=== PATIENT | female | born 1990 | race Caucasian/White ===

== ENCOUNTER 2020-09-02 20:55 | Inpatient (IN) | payer OTHER, SELFPAY ==
[2020-09-02] VITALS (11 sets, daily range): BP systolic 0–119; BP diastolic 0–79; PULSE 76–109; RESP 16; O2SAT 95–98; BMI 34.2
--- NOTE | 2020-09-02 21:05 | ANES.PREANE2 ---
Pre-Anesthetic Assessment Pre-Anesthetic Assessment: Preop Diagnosis: IUP Proposed Procedure: Labor epidural Was Beta Kaylee taken within 24 hours: N/A Last Intake: 09:30 Social: Social History: Tobacco (2-3 cigs per day) Exam: Pre-Anes Outpt Exam: alert, oriented x 3 and clear to auscultation bilaterally Airway: Submandibular: WNL Cervical ROM: WNL MP: 2 Pulmonary: Pulmonary: Asthma (acute denies recent problems) CV/HEM: CV/HEM: None reported : : None reported Hepatic: Hepatic: None reported GI: GI: GERD Metabolic: Metabolic: None reported Musc/skel: Musc/skel: None reported Neuropsych: Neuropsych: None reported Anesthetic Plan: ASA status: 2 Anesthesia: Anesthesia Evaluation and Eval. for regional block Data Anesthesia Cardiac Studies: No Data to Display
[2020-09-02] MEDS: lactated ringers 1,000 ML 999 ML IV (22:09)
[2020-09-02 22:27] LABS: Basophils % 0.2 %; Eosinophils # 0.1 10^3/uL (0.0-0.8); Eosinophils % 0.8 %; Hematocrit 39.9 % (37.0-47.0); Hemoglobin 13.3 g/dL (11.5-15.3); Lymphocytes % 12.1 %; Mean Corpuscular HGB Conc 33.3 g/dL (30.0-36.0); Mean Corpuscular Hemoglobin 29.6 pg (28.0-34.0); Mean Corpuscular Volume 88.9 fL (81-99); Monocytes # 1.2 10^3/uL (0.2-0.9); Neutrophils # 13.17 10^3/uL (1.8-7.7); Neutrophils % 79.6 %; Nucleated Red Blood Cells % 0 %; Platelet Count 301 10^3/cmm (130-400); Red Blood Count 4.49 10^6/uL (4.1-5.3); Red Cell Distribution Width 13.3 % (12.1-15.1); White Blood Count 16.6 10^3/uL (4.0-10.0)
[2020-09-02] MEDS: fentaNYL 50 mcg/mL INJ 2mL IV (23:05)
[2020-09-02] MEDS: dextrose 5%-lactated ringers 1,000 ML 125 ML IV (23:43)
[2020-09-03] VITALS (128 sets, daily range): BP systolic 0–143; BP diastolic 0–108; PULSE 58–130; RESP 16–18; TEMP 36.6–36.7; O2SAT 83–100
--- NOTE | 2020-09-03 00:23 | ANES.PROC ---
Anesthesia Procedures Procedure/Date: 09/03/20 Epidural: Time Out Performed: Yes Consents Signed: Procedure Consent Consent: requested by attending/covering physician, risks and benefits reviewed and patient agrees to proceed Lumbar Level: L3-L4 Epidural position: sitting Epidural procedure: sterile prep of area, 1% lidocaine to numb the area (3 cc ), 18 g needle (L3-L4 interspace), neg for paresthesia, test dose given (3 cc), 0.2% Ropivacaine bolus ml (8 cc), placed PCEA (13 mls/hr ), no systemic response, sterile dressing applied, L.U.D. no apparent complications and 0.2% Ropiavacaine @ mls/hr (13 mls/hr) Additional Comments: MARGARET at 8 cm, catheter threaded to to 13 cm at skin. Patients BP decreased significantly, 100 mcg phenelephrine x 2 doses. PACKER INSPECTOR pump turned off for 30 min and 300 cc bolus given. VSS see OBYX
--- NOTE | 2020-09-03 01:19 | PM.MISC ---
Miscellaneous Note Purpose of Documentation: anesthesia intervention Note: 0100: Attempted to restart patients epidural pump at 11 mls/hr, blood pressure decreased significantly again. epidural pump turned off, 50 mg IM ephedrine given and 100 mcg of phenelephrine x 3 doses. 0120: BP 107/54 epidural pump remains off, 500 ml bolus infusing.
--- NOTE | 2020-09-03 01:55 | PC.NURSE ---
Dr. Harley at nurses station, [facility] reviewed with MD and nursing interventions performed discussed.
--- NOTE | 2020-09-03 02:00 | PC.NURSE ---
Dr. Harley at bedside
[2020-09-03] MEDS: fentaNYL 50 mcg/mL INJ 2mL IV ×2 (04:12→10:58)
[2020-09-03] MEDS: oxytocin 30 UNIT/500 ML BAG IV (06:03)
--- NOTE | 2020-09-03 07:45 | PC.NURSE ---
PT DOES NOT HAE EPIDURAL AND REQUESTED THAT IT BE TAKEN OUT.
[2020-09-03] MEDS: dextrose 5%-lactated ringers 1,000 ML 125 ML IV (07:52)
--- NOTE | 2020-09-03 11:43 | PM.DELIVERY ---
Delivery Note: Date of delivery: September 03, 2020 Pre-Delivery Course: The patient is a 29-year-old 5 para 4 at 37 week who presented to the OB department last night complaining of contractions. She was making cervical change, so an amniotomy was performed. An epidural was attempted, but she had hypotension, as well as decelerations. As result the epidural was stopped. She was then having spaced out contractions, so Pitocin was used to augment her labor. Or last half hour the patient was having more frequent decelerations. As result I came to consider doing a . I checked her one more time and found that she was an anterior lip. So we pushed through several contractions and she delivered a baby without difficulty. Delivery: DELIVERY: The patient progressed to complete without difficulty. She delivered a male with a weight of 6 pounds 14 ounces with Apgars of 7, 9. The baby was delivered from the GHADA position. The baby's mouth and nose were suctioned at the site of the perineum. The baby was then completely delivered and placed on the mother's abdomen. The cord was then clamped and cut. There was a body cord x1. There was no meconium. The placenta and 3 vessel cord were delivered intact shortly thereafter. The perineum and vaginal vault were carefully examined. No lacerations were noted. Both the mother and the baby were in stable condition. Estimated blood loss was 150 mL A&P Assessment and plan (1) Spontaneous vaginal delivery: I anticipate routine care. Status: Acute (2) 37 weeks gestation of : Status: Acute Coding Level of Care Code Acute Equipment Maintenance Superintendent for [place] Diagnoses Spontaneous vaginal delivery O80 37 weeks gestation of Z3A.37
[2020-09-03] MEDS: benzocaine-menthol 78 gm Canister 1 SPRAY TOPICAL (13:12)
[2020-09-03] MEDS: HYDROcodone-acetaminophen 5-325 mg Tablet PO (13:13)
[2020-09-03] MEDS: lanolin oint 7 gm 1 APPLIC TOPICAL (13:13)
[2020-09-03] MEDS: ibuprofen 800 mg tablet PO ×2 (15:34→21:27)
[2020-09-03 17:16] LABS: Coronavirus Lab Test PTC Negative
[2020-09-03] MEDS: docusate sodium 100 mg Capsule PO (18:09)
[2020-09-04 00:25] LABS: Hematocrit 31.3 % (37.0-47.0); Hemoglobin 10.2 g/dL (11.5-15.3); Mean Corpuscular HGB Conc 32.6 g/dL (30.0-36.0); Mean Corpuscular Hemoglobin 29.7 pg (28.0-34.0); Mean Platelet Volume 11.8 fL (7.4-10.4); Platelet Count 239 10^3/cmm (130-400); Red Blood Count 3.44 10^6/uL (4.1-5.3); Red Cell Distribution Width 13.5 % (12.1-15.1); White Blood Count 11.5 10^3/uL (4.0-10.0)
[2020-09-04 01:40] VITALS: BP 108/62; PULSE 64; RESP 16
[2020-09-04 06:04] VITALS: BP 114/74; PULSE 74; RESP 17
[2020-09-04] MEDS: HYDROcodone-acetaminophen 5-325 mg Tablet PO (07:21)
--- NOTE | 2020-09-04 07:52 | PM.OBGYDC ---
Discharge Providers EMERGENCY MEDICINE SPECIALIST Date of Admission: 09/02/20 20:55 Date of Discharge: 09/04/20 Attending Provider at Admission: Vu Harley MD Attending Provider at Discharge: Vu Harley MD Primary Care Provider: Shobha Gomez MD Diagnoses at Discharge Discharge Diagnosis (1) Spontaneous vaginal delivery: Status: Acute (2) 37 weeks gestation of : Status: Acute Reason for Visit Reason for Visit: contractions Hospital Course Hospital Course The patient presented to the hospital in active labor. She had an epidural placed which was ineffective and also caused heart tone decelerations. As result the epidural was discontinued. An amniotomy was performed. Pitocin augmentation was included. She progressed to complete and had an unremarkable delivery of a healthy appearing 37-week male . Her course was also unremarkable. Her bleeding was within normal limits. Her pain was well controlled. She breast-fed well. Information Peripartum Data: Infant Delivery Method: Vaginal Physical Exam Narrative: EXAM NARRATIVE: The patient is alert. She appears comfortable. Her heart has a regular rate and rhythm with no murmurs appreciated. Lungs are clear to auscultation bilaterally. Her fundus is firm and below the umbilicus. Urinary Catheter Management^: Smith Latex: Cath Placed During This Visit: yes, but has since been removed by the nurse Reason for Continuing Indwelling Catheter: Other Urinary Catheter Date of Insertion: 09/03/20 Urinary Catheter Time of Insertion: 00:52 Date Urinary Catheter Removed: 09/03/20 Time Urinary Catheter Discontinued: 07:40 Discharge Data Data Completed and Pending: Labs from last 24 hours 09/04/20 09/03/20 00:15 00:35 WBC 11.5 H RBC 3.44 L Hgb 10.2 L Hct 31.3 L MCV 91.0 MCH 29.7 MCHC 32.6 RDW 13.5 Plt Count 239 MPV 11.8 H Nasal/Oral COVID-1 9 PCR Negative Vitals: Last Vital Signs Temp 97.9 F 09/03/20 21:35 Pulse 74 09/04/20 06:04 Resp 17 09/04/20 06:04 BP 114/74 09/04/20 06:04 Pulse Ox 98 09/03/20 21:35 Discharge Plan Discharge Patient Disposition: Home Condition: Stable Prescriptions: New ibuprofen 800 mg Tablet 800 mg PO TID Qty: 30 RF: 0 Continued 400 mcg Tablet,Chewable 1 tab PO DAILY RF: 0 Discharge Orders: Discharge Order (Routine); Ordered 09/04/20 Ordered By: Vu Harley Referrals: Jeffrey Taylor MD [Physician] - (For 6 week tubal ligation) Vu Harley MD [Physician] - 6 Weeks Discharge Diet: Regular Discharge Activity: Limit activity as instructed Discharge Attestations EMERGENCY MEDICINE SPECIALIST Time Spent in Discharge Care*: less than 30 min Coding Level of Care Code Acute Bullet Slug Casting Machine Operator for Chg Fwd Diagnoses Spontaneous vaginal delivery O80 37 weeks gestation of Z3A.37
[2020-09-04] MEDS: ibuprofen 800 mg tablet PO (08:59)
[2020-09-04] MEDS: prenatal vitamin Capsule 1 CAP PO (08:59)
[2020-09-04] MEDS: docusate sodium 100 mg Capsule PO (08:59)
[2020-09-04 10:25] VITALS: BP 107/70; PULSE 91; RESP 18; TEMP 36.6; O2SAT 99
--- NOTE | 2020-09-04 12:59 | ANE.PACU2 ---
Inpatient post-anesthesia follow up: Airway intact: Yes Vital signs: Temperature 97.9 F Pulse Rate 91 Respiratory Rate 18 Blood Pressure 107/70 Pulse Oximetry 99 Oxygen Delivery Me thod Room Air Oxygen Flow Rate Fraction of Inspir ed Oxygen Hydration adequate: Yes Nausea and vomiting: No Pain level: 1 Mental status: Baseline Additional Comments: No signs of infection at neuraxial site, no residual numbness/weakness in legs, no headaches, urinating without tinoco
[2020-09-04 14:13] VITALS: BP 106/69; PULSE 69; RESP 18; TEMP 37.1; O2SAT 99
--- NOTE | 2020-09-04 14:58 | PC.NURSE ---
Women's Health Appointment Patient has an appt scheduled 09/27/20 @ 1:15 for a tubal consult with Dr Taylor, patient aware of this appointment
--- NOTE | 2020-09-04 14:59 | PC.NURSE ---
Patient did not get MMR while a patient here in the hospital. Catrachito Anderson called and was aware of her not getting the shot, they said they would give it at 6 week appt. Patient was called and made aware
== END 2020-09-04 14:25 | disposition home or self-care (01) | DRG 807 ==
LOC: OPOB 21:01 → OBGYN 21:01 → OPOB 09-03 00:45 → OBGYN 09-03 00:45
PROVIDERS: Admitting Provider Family Medicine; PCP Family Medicine; Visit Provider Family Medicine
DX: O69.81X0 Labor and delivery complicated by cord around neck, without compression, not applicable or unspecified (principal); Z37.0 Single live birth; O76 Abnormality in fetal heart rate and rhythm complicating labor and delivery; Z3A.37 37 weeks gestation of pregnancy
CPT/HCPCS: 12345; 36415; 51702; 59025; 59409; 85025; 85027; 87635; 96374; 96375; 99211; J2795; J3010

== ENCOUNTER → 2020-10-28 09:10 | Outpatient (BNVA) | payer OTHER, MEDICAID, SELFPAY | PROVIDERS: PCP Family Medicine; Visit Provider Obstetrics & Gynecology | DX: Z11.59 Encounter for screening for other viral diseases (principal); Z30.2 Encounter for sterilization | CPT/HCPCS: 87635 ==

== ENCOUNTER 2020-10-30 09:54 | Day surgery (SDC) | payer OTHER, MEDICAID, SELFPAY ==
[2020-10-28 12:25] VITALS: BMI 33.0
[2020-10-28 12:41] LABS: OR HCG Qualitative Urine Negative (Negative)
[2020-10-28 12:53] LABS: Add Urine Microscopic? NO
[2020-10-28 13:01] LABS: Basophils # 0.1 10^3/uL (0.0-0.1); Basophils % 0.6 %; Eosinophils # 0.2 10^3/uL (0.0-0.8); Eosinophils % 2.2 %; Hematocrit 44.7 % (37.0-47.0); Hemoglobin 14.2 g/dL (11.5-15.3); Lymphocytes # 2.4 10^3/uL (0.8-4.8); Lymphocytes % 30.5 %; Mean Corpuscular HGB Conc 31.8 g/dL (30.0-36.0); Mean Corpuscular Hemoglobin 29.1 pg (28.0-34.0); Mean Corpuscular Volume 91.6 fL (81-99); Mean Platelet Volume 10.6 fL (7.4-10.4); Monocytes # 0.6 10^3/uL (0.2-0.9); Monocytes % 7.4 %; Neutrophils # 4.66 10^3/uL (1.8-7.7); Nucleated Red Blood Cells % 0 %; Platelet Count 430 10^3/cmm (130-400); Red Blood Count 4.88 10^6/uL (4.1-5.3); Red Cell Distribution Width 12.8 % (12.1-15.1); White Blood Count 7.9 10^3/uL (4.0-10.0)
[2020-10-28 13:08] LABS: Bilirubin Urine Neg (Negative); Blood Urine Neg (Negative); Glucose Urine UA Norm (Normal); Ketones Urine Negative (Negative); Leukocyte Esterase Urine Negative (Negative); Nitrate Urine Negative (Negative); Protein Urine Neg (Negative); Specific Gravity, Urine 1.025 (1.005-1.030); Urine Appearance Clear (CLEAR); Urine Color Yellow (Yellow); Urobilinogen Urine Norm (Negative); pH Urine 5 (5-7)
[2020-10-28 13:26] LABS: Alanine Aminotransferase 23 U/L (0-33); Alkaline Phosphatase 117 IU/L (35-105); Anion Gap 11.6 (5-19); Aspartate Amino Transferase 19 U/L (0-32); Blood Urea Nitrogen 8 mg/dL (6-20); Calcium 8.7 mg/dL (8.5-10.5); Carbon Dioxide 29 mmol/L (22-29); Chloride 101 mmol/L (98-107); Globulin 2.8 g/dL (1.3-4.6); Glomerular Filtration Rate 118.2 mL/min (90-130); Glucose 97 mg/dL (65-115); Osmolality Calculated 284 mOsm/kg (285-295); Potassium 3.6 mmol/L (3.5-5.1); Sodium 138 mmol/L (136-145); Total Bilirubin 0.5 mg/dL (0.15-1.2); Total Protein 6.8 g/dL (6.6-8.7)
--- NOTE | 2020-10-28 14:15 | ANES.PREANE2 ---
Pre-Anesthetic Assessment Pre-Anesthetic Assessment: Height/Weight: Height 1.68 m Weight 92.986 kg Preop Diagnosis: Desire permanent sterilization Proposed Procedure: Operation Date: 10/30/20 11:35 Proposed Procedures p bilateral Lap Fulg,Removal of Tubes Sterilization 43275 z30.2(Bilateral) - Jeffrey Taylor MD Was Beta Kaylee taken within 24 hours: N/A Social: Social History: Tobacco and No alcohol Exam: Pre-Anes Outpt Exam: alert, oriented x 3, clear to auscultation bilaterally and regular rate & rhythm Airway: Submandibular: WNL Cervical ROM: WNL MP: 2 Dentition: Full Pulmonary: Pulmonary: COPD Metabolic: Metabolic: Morbid obesity Anesthetic Plan: ASA status: 2 Anesthesia: General Risk of > 500 ml blood loss (7ml/kg in children): No PFSH Anesthesia PFSH: Family History Denies family history of Colon cancer Ovarian cancer Diabetes Clotting disorder Heart disease Hypercholesteremia Breast cancer Anesthesia complication Bleeding disorder Hypertension Uterine cancer Thyroid disease Stroke Social History (Updated 10/28/20 @ 08:21 by Ileana Etienne RN) Smoking and tobacco status: current every day smoker cigarettes [ Other cigarette details: 5-6 cigarettes per day ] Alcohol intake: never Data Anesthesia CBC & Chem 7: 10/28/20 12:40 10/28/20 12:40 Other Labs: Laboratory Results - last 48 hr 10/28/20 10/28/20 10/28/20 12:23 12:40 12:40 WBC 7.9 RBC 4.88 Hgb 14.2 Hct 44.7 MCV 91.6 MCH 29.1 MCHC 31.8 RDW 12.8 Plt Count 430 H MPV 10.6 H Neut % (Auto) 59.0 Lymph % (Auto) 30.5 [place] % (Auto) 7.4 Eos % (Auto) 2.2 Baso % (Auto) 0.6 Neut # (Auto) 4.66 Lymph # (Auto) 2.4 [place] # (Auto) 0.6 Eos # (Auto) 0.2 Baso # (Auto) 0.1 Nucleated RBC % (auto) 0 Nucleated RBCs # 0.0 Sodium Potassium Chloride Carbon Dioxide Anion Gap BUN Creatinine GFR Calculation Glucose Calculated Osmolality Calcium Total Bilirubin AST ALT Alkaline Phosphatase Total Protein Albumin Globulin Urine Color Yellow Urine Appearance Clear Urine pH 5 Ur Specific [place] 1.025 Urine Protein Neg Urine Glucose (UA) Norm Urine Ketones Negative Urine Blood Neg Urine Nitrate Negative Urine Bilirubin Neg Urine Urobilinogen Norm Ur Leukocyte Esterase Negative Urine HCG, Qual Negative Blood Type Rho(D) Type Antibody Screen 10/28/20 10/28/20 12:40 12:40 WBC RBC Hgb Hct MCV MCH MCHC RDW Plt Count MPV Neut % (Auto) Lymph % (Auto) [place] % (Auto) Eos % (Auto) Baso % (Auto) Neut # (Auto) Lymph # (Auto) [place] # (Auto) Eos # (Auto) Baso # (Auto) Nucleated RBC % (auto) Nucleated RBCs # Sodium 138 Potassium 3.6 Chloride 101 Carbon Dioxide 29 Anion Gap 11.6 BUN 8 Creatinine 0.6 GFR Calculation 118.2 Glucose 97 Calculated Osmolality 284 L Calcium 8.7 Total Bilirubin 0.5 AST 19 ALT 23 Alkaline Phosphatase 117 H Total Protein 6.8 Albumin 4.0 Globulin 2.8 Urine Color Urine Appearance Urine pH Ur Specific [place] Urine Protein Urine Glucose (UA) Urine Ketones Urine Blood Urine Nitrate Urine Bilirubin Urine Urobilinogen Ur Leukocyte Esterase Urine HCG, Qual Blood Type O Positive Rho(D) Type Positive Antibody Screen Negative Cardiac Studies: No Data to Display
[2020-10-30] VITALS (8 sets, daily range): BP systolic 109–128; BP diastolic 58–80; PULSE 48–77; RESP 16–20; TEMP 36.4–36.9; O2SAT 95–97
[2020-10-30] MEDS: sodium chloride 0.9% 1,000 ML 30 ML IV (10:43)
--- NOTE | 2020-10-30 10:56 | P.ANESUD_ITS ---
Pre-Anesthetic Update Pre-Anesthetic Assessment: Date of Surgery/Procedure: 10/30/20 Preop Stephani gnosis: IUP Proposed Procedure: Operation Date: 10/30/20 11:35 Proposed Procedures p bilateral Lap Fulg,Removal of Tubes Sterilization 83391 z30.2(Bilateral) - Jeffrey Taylor MD Any changes to Pre-Anesthetic Assessment?: No Changes from Pre-Anesthetic Assessment: NPO at MN Last Intake: Intake Last Liquid Date 10/29/20 Last Liquid Time 18:30 Last Solid Date 10/29/20 Last Solid Time 18:30 Labs Last 48hrs: Laboratory Results - last 48 hr 10/28/20 10/28/20 10/28/20 12:23 12:40 12:40 WBC 7.9 RBC 4.88 Hgb 14.2 Hct 44.7 MCV 91.6 MCH 29.1 MCHC 31.8 RDW 12.8 Plt Count 430 H MPV 10.6 H Neut % (Auto) 59.0 Lymph % (Auto) 30.5 [place] % (Auto) 7.4 Eos % (Auto) 2.2 Baso % (Auto) 0.6 Neut # (Auto) 4.66 Lymph # (Auto) 2.4 [place] # (Auto) 0.6 Eos # (Auto) 0.2 Baso # (Auto) 0.1 Nucleated RBC % (a uto) 0 Nucleated RBCs # 0.0 Sodium Potassium Chloride Carbon Dioxide Anion Gap BUN Creatinine GFR Calculation Glucose Calculated Osmolal ity Calcium Total Bilirubin AST ALT Alkaline Phosphata se Total Protein Albumin Globulin Urine Color Yellow Urine Appearance Clear Urine pH 5 Ur Specific Gravit y 1.025 Urine Protein Neg Urine Glucose (UA) Norm Urine Ketones Negative Urine Blood Neg Urine Nitrate Negative Urine Bilirubin Neg Urine Urobilinogen Norm Ur Leukocyte [place] ase Negative Urine HCG, Qual Negative Blood Type Rho(D) Type Antibody Screen 10/28/20 10/28/20 12:40 12:40 WBC RBC Hgb Hct MCV MCH MCHC RDW Plt Count MPV Neut % (Auto) Lymph % (Auto) [place] % (Auto) Eos % (Auto) Baso % (Auto) Neut # (Auto) Lymph # (Auto) [place] # (Auto) Eos # (Auto) Baso # (Auto) Nucleated RBC % (a uto) Nucleated RBCs # Sodium 138 Potassium 3.6 Chloride 101 Carbon Dioxide 29 Anion Gap 11.6 BUN 8 Creatinine 0.6 GFR Calculation 118.2 Glucose 97 Calculated Osmolal ity 284 L Calcium 8.7 Total Bilirubin 0.5 AST 19 ALT 23 Alkaline Phosphata se 117 H Total Protein 6.8 Albumin 4.0 Globulin 2.8 Urine Color Urine Appearance Urine pH Ur Specific Gravit y Urine Protein Urine Glucose (UA) Urine Ketones Urine Blood Urine Nitrate Urine Bilirubin Urine Urobilinogen Ur Leukocyte Kerry ase Urine HCG, Qual Blood Type O Positive Rho(D) Type Positive Antibody Screen Negative Vitals: Temperature 97.7 F 10/30/20 10:15 Temperature Source Temporal Artery S can 10/30/20 10:15 Pulse Rate 68 10/30/20 10:15 Respiratory Rate 18 10/30/20 10:15 Blood Pressure 121/67 10/30/20 10:15 Blood Pressure Mesha n 85 10/30/20 10:15 Pulse Oximetry 97 10/30/20 10:15 Oxygen Delivery Me thod 10/30/20 10:15 Exam: Pre-Anes Outpt Exam: alert, oriented x 3, clear to auscultation bilaterally and regular rate & rhythm Cardiac Studies: No Data to Display
--- NOTE | 2020-10-30 11:40 | W.PM.OPSUD ---
Surgery/Procedure H&P Update DATE OF PROCEDURE: October 30, 2020 DATE H&P PERFORMED: 10/28/20 H&P UPDATE INFORMATION: I have reviewed H&P completed within last 30 days, I have examined patient prior to procedure and No changes to prior documentation PREOP DIAGNOSIS: IUP PLANNED PROCEDURE: Operation Date: 10/30/20 11:35 Proposed Procedures p bilateral Lap Fulg,Removal of Tubes Sterilization 86438 z30.2(Bilateral) - Jeffrey Taylor MD
[2020-10-30] MEDS: midazolam 1 mg/mL INJ 2 mL 2 MG IVP (11:43)
--- NOTE | 2020-10-30 13:58 | PM.OP ---
Operative Report Date of procedure: October 30, 2020 Pre-op Diagnosis: Desire permanent sterilization Post-op diagnosis: same Post-op Findings: Normal uterus ovaries and tubes Procedure Done: Laparoscopic bilateral salpingectomy Specimens removed/disposition: Left and right fallopian tube Pathology: Left and right fallopian tube Surgeon: Jeffrey Davis MD Anesthesia: General Estimated blood loss (mL): 5 IV fluids (mL): 800 Urine output (mL): 400 Complications: None Findings: Normal uterus, fallopian tubes, ovaries Condition: stable Disposition: PACU Brief History: 29-year-old female desires permanent sterilization Procedure: After informed consent, the patient was taken to the operating room where general anesthesia was administered. She was placed in the dorsal lithotomy position and prepped and draped in sterile fashion. Pre-Procedure Time-Out verifying the correct patient identity, correct procedure verified with consent, correct site and side, correct patient position, availability of correct implants and any special equipment or requirements was performed and acknowledge by the OR team. The patient was examined under anesthesia and found to have a normal uterus with normal adnexa. A weighted speculum was placed in the vagina, and the anterior lip of cervix was grasped with the single toothed tenaculum. A uterine manipulator was advanced into the endocervical canal and uterus. The tenaculum was removed after uterine manipulator was secured. The speculum was removed from the vagina. An intraumbilical incision was made with a scalpel. While tenting up on the abdomen, a Verres needle was admitted into the intra-abdominal cavity. A saline drop test was performed and noted to be within normal limits. Pneumoperitoneum was attained with 4 liters of carbon dioxide. The Verres needle was removed. A 5 mm Opitc view trocar and sleeve were admitted into the abdomen and laparoscopic confirmation of location was achieved. A second incision was made 3 cm above the symphysis pubis, and a 5 mm trocar sleeves were admitted into the abdomen under direct laparoscopic visualization without complication. A survey revealed normal abdominal anatomy with the exception of string adhesion to the right lower anterior abdominal wall. A 5 mm blunt probe was advanced through the second trocar sleeve, and light manipulation of ovaries and uterus to assess the posterior aspects was performed. The pelvic survey shows normal uterus, left and right adnexa. The left ovary was noted with a follicular cyst. The string adhesion was fulgurated and transected with good hemostasis with the Ligasure. The patient was placed into Trendelenburg position. The fallopian tubes were inspected bilaterally and the fimbriated ends of the fallopian tubes were visualized bilaterally. Attention was then directed to the right side. The fallopian tube and mesosalpinx were grasped and the underlying mesosalpinx was cauterized and cut using the Ligasure device. Serial cauterization and cutting was used to separate the fallopian tube from the underlying mesosalpinx until it could be amputated cutting it approximated 2 cm from the cornua. Attention was then turned to the contralateral fallopian tube, which was removed in similar fashion. Both specimens were removed through the trocar and sent to pathology. The instruments were removed. The suprapubic trocar port was removed under direct visualization insuring good hemostasis. The carbon dioxide was allowed to escape from the abdomen. The intraumbilical trocar sleeve was withdrawn under visualization with laparoscope in the sleeve to insure hemostasis. The skin incisions were closed with 3-O Monocryl subcuticular stich and Dermabond. The instruments were removed from the vagina, and excellent hemostasis was noted. The patient tolerated the procedure well, and sponge, lap and needle count were correct times two. The patient was taken to the recovery room in good condition.
--- NOTE | 2020-10-30 14:10 | SUR.PHASEI ---
1717 PT AWAKE ON RA TRIAL, DR ROOT AT BEDSIDE TALKING TO PT , VSS. IV PATENT PT SLEEPS IF NOT DISTURBED.
--- NOTE | 2020-10-30 14:26 | ANE.PACU2 ---
Inpatient post-anesthesia follow up: Airway intact: Yes Vital signs: Temperature 97.6 F Pulse Rate 58 Respiratory Rate 20 Blood Pressure 114/77 Pulse Oximetry 95 Oxygen Delivery Me thod Room Air Oxygen Flow Rate 8 Fraction of Inspir ed Oxygen Hydration adequate: Yes Nausea and vomiting: No Pain level: 2 Mental status: Baseline
== END 2020-10-30 15:02 | disposition home or self-care (01) ==
PROVIDERS: PCP Family Medicine; Visit Provider Obstetrics & Gynecology
PROC: (CPT 58661; principal; 2020-10-30 11:35)
DX: Z30.2 Encounter for sterilization (principal); J44.9 Chronic obstructive pulmonary disease, unspecified; E66.01 Morbid (severe) obesity due to excess calories; Z68.33 Body mass index [BMI] 33.0-33.9, adult; F17.210 Nicotine dependence, cigarettes, uncomplicated
CPT/HCPCS: 58661; 12345; 36415; 80053; 81003; 81025; 84703; 85025; 86850; 86900; 88300; J0690; J2250; J3010; J3490; J7030

== ENCOUNTER → 2021-06-17 12:54 | Outpatient (BNVA) | payer OTHER, MEDICAID, SELFPAY | PROVIDERS: PCP Family Medicine; Visit Provider Nurse Practitioner | DX: J02.9 Acute pharyngitis, unspecified (principal) | CPT/HCPCS: 87880 ==

== ENCOUNTER 2021-06-19 18:21 | Emergency (ER) | payer OTHER, MEDICAID, SELFPAY ==
[2021-06-19 18:24] VITALS: BP 107/77; PULSE 109; RESP 16; TEMP 36.5; O2SAT 94; BMI 34.5
--- NOTE | 2021-06-19 18:31 | W.ED.GENADLT ---
HPI - General Adult General: Chief complaint: General Medical Stated complaint: sore throat Time Seen by Provider: 06/19/21 18:31 History of Present Illness: HPI narrative: Patient is a 30-year-old female comes to the ED with sore throat and right neck swelling and tenderness. Patient says sore throat started on Wednesday. On Wednesday she saw PCP and they did a strep test that was negative and they started her on amoxicillin. Sore throat has not improved and today she woke up and had swelling and tenderness on the right side of her neck/submandibular region. She says it hurts to swallow. She went and saw the urgent care here today and they told her to come directly here to ED to scan for possible abscess. She reports having some chills but denies any fever, chest pain, cough, shortness of breath, abdominal pain, nausea/vomiting, bladder or bowel symptoms. Associated symptoms: Deny chest pain, dyspnea, headache(s), nausea, rash, palpitations or vomiting Review of Systems Const: Denies: fever(s), chills or fatigue Eyes: Denies: change in vision or eye discomfort ENMT: Reports: throat pain, enlarged tonsils, odynophagia and halitosis; Denies: nasal discharge or nasal congestion Card: Denies: chest pain, palpitations, edema, swelling of feet/ankles, dyspnea on exertion or orthopnea Resp: Denies: dyspnea, productive cough or non-productive cough GI: Denies: abdominal pain, nausea, vomiting, diarrhea, constipation or hematochezia : Denies: flank pain, dysuria or hematuria Musc: Denies: neck pain, back pain or extremity swelling Skin/Breast: Denies: rash or new lesions Neuro: Denies: headache(s), numbness in extremities or weakness in extremities PFS ED PFSH: Family History Denies family history of Colon cancer Ovarian cancer Diabetes Clotting disorder Heart disease Hypercholesteremia Breast cancer Anesthesia complication Bleeding disorder Hypertension Uterine cancer Thyroid disease Stroke Social History Smoking and tobacco status: current every day smoker cigarettes [ Other cigarette details: 5-6 cigarettes per day ] Alcohol intake: never Physical Exam Const: COMMON NORMALS: no acute distress, patient oriented x3, healthy appearing and alert GENERAL APPEARANCE: cooperative and comfortable HENMT: COMMON NORMALS: normocephalic HEAD & SCALP: normocephalic MOUTH: Normal oral and palatal mucosa present THROAT: uvula midline, abnormal tonsil bilateral erythema, exudates and hypertrophy 3+, posterior oropharynx abnormal edema and erythema and other (Malodorous breath) Eye: COMMON NORMALS: Equal, round and reactive pupils present and conjunctivae normal CONJUNCTIVA: Yes conjunctivae normal PUPIL: Yes Equal, round and reactive pupils present Neck/C-Spine: COMMON NORMALS: supple GENERAL: Yes normal visual inspection and Yes lymphadenopathy Lymphadenopathy location: submandibular and anterior cervical tender 1 cm Resp: COMMON NORMALS: normal respiratory effort, No retractions, No use of accessory muscles and clear to auscultation bilaterally AUSCULTATION: clear to auscultation bilaterally Cardio: COMMON NORMALS: regular rate, regular rhythm, S1 normal heart sound present, S2 normal heart sound present, No gallops present (Cardio), No clicks present (Cardio), No murmurs present (Cardio) and Peripheral pulses 2+ throughout RATE: regular rate RHYTHM: regular rhythm HEART SOUNDS: S1 normal heart sound present and S2 normal heart sound present PERIPHERAL PULSES: Peripheral pulses 2+ throughout GI: COMMON NORMALS: Normal to inspection, nondistended, normoactive bowel sounds present, Soft to palpation, non-tender and no masses PALPATION: Yes Soft to palpation : COMMON NORMALS: Yes no CVA tenderness BLADDER/KIDNEY EXAM: Yes no CVA tenderness Back/Pelvis: COMMON NORMALS: no CVA tenderness Extremity: COMMON NORMALS: normal to inspection Neuro: COMMON NORMALS: patient oriented x3 and moves all extremities SENSORIUM/ORIENTATION: Yes alert Skin: GENERAL SKIN EXAM: dry skin Course Vital Signs: Vital signs: Vital Signs Temperature 98.2 F 06/19/21 20:28 Pulse Rate 90 06/19/21 20:28 Respiratory Rate 18 06/19/21 20:28 Blood Pressure 115/73 06/19/21 20:28 Pulse Oximetry 98 06/19/21 20:28 MDM - General Adult MDM Narrative: Medical decision making narrative: Patient is a 30-year-old female comes to the ED with sore throat and right-sided neck swelling and tenderness. Patient was seen by her PCP and put on Augmentin. She is not improved and went and saw the urgent care and they sent her here to the ED to scan for an abscess. Vitals are stable. Exam shows a nontoxic and healthy-appearing patient in no acute distress or pain. Patient has 3+ hypertrophy of tonsils along with erythema. He also has posterior oropharynx erythema. Malodorous breath. She had a negative strep test 3 days ago. CBC and CMP were unremarkable. hCG negative. CT of neck showed acute tonsillitis and no abscess noted. Right cervical and submandibular enlarged lymph nodes noted. While here in the ED patient was given IV 1 L fluids, Rocephin and Solu-Medrol. She was also given a dose of morphine for pain. Please order with case management for patient to be referred to ENT for follow-up and further evaluation. Patient was diagnosed with tonsillitis and pharyngitis and discharged home. Patient was told to continue taking the previously prescribed Augmentin and she was sent home with a prescription for prednisone to help with swelling. Return to ED precautions given. I told patient test case developer will be contacting her in the next several days set up an appointment with ENT doctor. Patient understood and agree with plan. Lab Data: Attestation: I reviewed the patient's lab results. Labs: Lab Results 06/19/21 06/19/21 06/19/21 Range/Units 19:24 19:24 19:24 WBC 9.7 (4.0-10.0) 10^3/ uL RBC 4.96 (4.1-5.3) 10^6/u L Hgb 14.4 (11.5-15.3) g/dL Hct 43.7 (37.0-47.0) % MCV 88.1 (81-99) fl MCH 29.0 (28.0-34.0) pg MCHC 33.0 (30.0-36.0) g/dL RDW 12.3 (12.1-15.1) % Plt Count 333 (130-400) 10^3/c mm MPV 11.0 H (7.4-10.4) fL Neut % (Auto) 74.1 % Lymph % (Auto) 14.4 % [place] % (Auto) 10.5 % Eos % (Auto) 0.2 % Baso % (Auto) 0.6 % Neut # (Auto) 7.16 (1.8-7.7) 10^3/u L Lymph # (Auto) 1.4 (0.8-4.8) 10^3/u L [place] # (Auto) 1.0 H (0.2-0.9) 10^3/u L Eos # (Auto) 0.0 (0.0-0.8) 10^3/u L Baso # (Auto) 0.1 (0.0-0.1) 10^3/u L Nucleated RBC % (a uto) 0 % Nucleated RBCs # 0.0 /100WBC Sodium 133 L (136-145) mmol/L Potassium 3.5 (3.5-5.1) mmol/L Chloride 96 L (98-107) mmol/L Carbon Dioxide 26 (22-29) mmol/L Anion Gap 14.5 (5-19) BUN 5 L (6-20) mg/dL Creatinine 0.7 (0.5-0.9) mg/dL GFR Calculation 98.3 (90-130) mL/min Glucose 95 (65-115) mg/dL Calculated Osmolal ity 273 L (285-295) mOsm/k g Calcium 8.2 L (8.5-10.5) mg/dL Total Bilirubin 0.7 (0.15-1.2) mg/dL AST 35 H (0-32) U/L ALT 35 H (0-33) U/L Alkaline Phosphata se 121 H (35-105) IU/L Total Protein 7.3 (6.6-8.7) g/dL Albumin 4.1 (3.5-5.2) g/dL Globulin 3.2 (1.3-4.6) g/dL HCG, Qual Negative (Negative) Imaging Data^: Other CT: Attestation: I personally reviewed and interpreted this imaging study as follows: Radiologist's impression: [address] [address] [address] Scan Report Signed Patient: Diana Deng Unit #: [id number] : 1990 Age/Sex: 30 / F ADM Date: 06/19/21 Loc: ER Room/Bed: Attending Dr: Ordering Provider/Ordering MD: Robel Kent Date of Service: 06/19/21 Procedure(s): CT neck w con* [id number] Accession Number(s): [id number] Report Number: [id number] PROCEDURE INFORMATION: Exam: CT Neck With Contrast Exam date and time: 06/19/2021 6:45 PM Age: 30 years old Clinical indication: Throat pain; Additional info: Sore throat, right submandibular swelling/tenderness TECHNIQUE: Imaging protocol: Computed tomography images of the neck with contrast. Radiation optimization: All CT scans at this facility use at least one of these dose optimization techniques: automated exposure control; mA and/or kV adjustment per patient size (includes targeted exams where dose is matched to clinical indication); or iterative reconstruction. Contrast material: OMNI 300; Contrast volume: 95 ml; Contrast route: INTRAVENOUS (IV); COMPARISON: No relevant prior studies available. RADIATION DOSE METRICS: Total DLP (mGy-cm): 396.02 FINDINGS: Limitations: Dental amalgam artifact obscures the oral cavity and oral pharynx. Paranasal sinuses: Right maxillary sinus mucous retention cyst. Nasal cavity: Nasal ornamentation. Nasopharynx: Unremarkable. Dental: Partially obscured as result of dental artifact, couple small low attenuating areas within the right palatine tonsil suggesting some micro abscesses. Dental caries and periodontal disease. Oropharynx: Right greater than left tonsillar enlargement with striated enhancement. Hypopharynx: Unremarkable. Larynx: Unremarkable. Normal epiglottis. Retropharyngeal space: Unremarkable. Submandibular/Parotid glands: Normal. Glands are normal in size. Thyroid: Normal. No enlarged or calcified nodules. Lymph nodes: Cervical adenopathy with a large right submandibular level 2 a 2.4 cm x 2.3 cm lymph node. Trachea: Visualized trachea is unremarkable. Lungs: Unremarkable as visualized. Bones/joints: Unremarkable. No acute fracture. Soft tissues: Unremarkable. No significant soft tissue swelling. CT/CT neck w con* [id number] IMPRESSION: 1. Right greater than left tonsillar enlargement with striated enhancement. Evidence of tonsillitis. Partially obscured as result of dental artifact, couple small low attenuating areas within the right palatine tonsil suggesting some micro abscesses. 2. Cervical adenopathy with a large right submandibular level 2 a 2.4 cm x 2.3 cm lymph node. Adjacent to the normal appearing right submandibular gland. Radiation Dose CTDIVOL = (mGy): DLP = 396.02 (mGy-cm) Dictated By: Renato Pereira MD Signed By: Renato Pereira MD Signed Date/Time: 06/19/211931 DD/ 31 Discharge Plan Discharge Patient Disposition: Home Clinical Impression: Acute tonsillitis Qualifiers: Pharyngitis/tonsillitis etiology: unspecified etiology Qualified Code(s): J03.90 - Acute tonsillitis, unspecified Pharyngitis Qualifiers: Pharyngitis/tonsillitis etiology: unspecified etiology Qualified Code(s): J02.9 - Acute pharyngitis, unspecified Condition: Stable Prescriptions: New prednisone 50 mg tablet 50 mg PO DAILY 3 Days Qty: 3 RF: 0 No Action amoxicillin-pot clavulanate [Augmentin] 875-125 mg tablet 1 tab PO Q12H 7 Days Qty: 14 RF: 0 Discharge Orders: Discharge ED (Routine); Ordered 06/19/21 Ordered By: Robel Kent Referrals: Vu Harley MD [Primary Care Provider] - Discharge Diet: Regular Discharge Activity: Resume usual activity Patient Instructions: Pharyngitis (ED), Tonsillitis (ED) Activity Restrictions/Additional Instructions: Follow-up with medical provider as directed. Case management will contact you like several days set up appoint with ENT for follow-up and reevaluation. Take medications as prescribed. Continue taking previously prescribed antibiotic. Take [id number] Tylenol or Motrin for fevers or pain. Return to the ER or your medical provider if condition worsens. Please read and understand discharge instructions. Thank you for choosing [facility] for your healthcare needs today. Please realize this is an emergency room and that we are providing you with a medical screening exam and this may not be complete and all inclusive of all the testing and or work up that you may need to determine your ailment or severity of your illness. It is very important that you follow up as instructed or that you return to the Emergency Department should you have concerns or if your condition changes or worsens in any way. Stand Alone Forms: Work/School Release Coding Level of Care Code ED Beater Engineer for [facility] Fwd Exam Comprehensive
--- NOTE | 2021-06-19 18:45 | CTR_ITS ---
PROCEDURE INFORMATION: Exam: CT Neck With Contrast Exam date and time: 06/19/2021 6:45 PM Age: 30 years old Clinical indication: Throat pain; Additional info: Sore throat, right submandibular swelling/tenderness TECHNIQUE: Imaging protocol: Computed tomography images of the neck with contrast. Radiation optimization: All CT scans at this facility use at least one of these dose optimization techniques: automated exposure control; mA and/or kV adjustment per patient size (includes targeted exams where dose is matched to clinical indication); or iterative reconstruction. Contrast material: OMNI 300; Contrast volume: 95 ml; Contrast route: INTRAVENOUS (IV); COMPARISON: No relevant prior studies available. RADIATION DOSE METRICS: Total DLP (mGy-cm): 396.02 FINDINGS: Limitations: Dental amalgam artifact obscures the oral cavity and oral pharynx. Paranasal sinuses: Right maxillary sinus mucous retention cyst. Nasal cavity: Nasal ornamentation. Nasopharynx: Unremarkable. Dental: Partially obscured as result of dental artifact, couple small low attenuating areas within the right palatine tonsil suggesting some micro abscesses. Dental caries and periodontal disease. Oropharynx: Right greater than left tonsillar enlargement with striated enhancement. Hypopharynx: Unremarkable. Larynx: Unremarkable. Normal epiglottis. Retropharyngeal space: Unremarkable. Submandibular/Parotid glands: Normal. Glands are normal in size. Thyroid: Normal. No enlarged or calcified nodules. Lymph nodes: Cervical adenopathy with a large right submandibular level 2 a 2.4 cm x 2.3 cm lymph node. Trachea: Visualized trachea is unremarkable. Lungs: Unremarkable as visualized. Bones/joints: Unremarkable. No acute fracture. Soft tissues: Unremarkable. No significant soft tissue swelling. CT/CT neck w con* [id number] IMPRESSION: 1. Right greater than left tonsillar enlargement with striated enhancement. Evidence of tonsillitis. Partially obscured as result of dental artifact, couple small low attenuating areas within the right palatine tonsil suggesting some micro abscesses. 2. Cervical adenopathy with a large right submandibular level 2 a 2.4 cm x 2.3 cm lymph node. Adjacent to the normal appearing right submandibular gland. Radiation Dose CTDIVOL = (mGy): DLP = 396.02 (mGy-cm)
[2021-06-19] MEDS: iohexol 300 mg/mL 100 mL Btl IV (19:09)
[2021-06-19 19:23] VITALS: RESP 18; O2SAT 97
[2021-06-19] MEDS: morphine 4 mg/mL SDV 1 mL 2 MG IVP (19:23)
[2021-06-19] MEDS: sodium chloride 0.9% 1,000 ML 999 ML IV (19:24)
[2021-06-19 19:26] VITALS: BP 115/73; PULSE 98; RESP 18; O2SAT 97
[2021-06-19 19:32] LABS: Basophils # 0.1 10^3/uL (0.0-0.1); Basophils % 0.6 %; Eosinophils % 0.2 %; Hematocrit 43.7 % (37.0-47.0); Hemoglobin 14.4 g/dL (11.5-15.3); Lymphocytes # 1.4 10^3/uL (0.8-4.8); Lymphocytes % 14.4 %; Mean Corpuscular Volume 88.1 fl (81-99); Monocytes % 10.5 %; Neutrophils # 7.16 10^3/uL (1.8-7.7); Neutrophils % 74.1 %; Nucleated Red Blood Cells % 0 %; Platelet Count 333 10^3/cmm (130-400); Red Blood Count 4.96 10^6/uL (4.1-5.3); Red Cell Distribution Width 12.3 % (12.1-15.1); White Blood Count 9.7 10^3/uL (4.0-10.0)
[2021-06-19 19:53] LABS: Alanine Aminotransferase 35 U/L (0-33); Albumin Level 4.1 g/dL (3.5-5.2); Alkaline Phosphatase 121 IU/L (35-105); Anion Gap 14.5 (5-19); Aspartate Amino Transferase 35 U/L (0-32); Blood Urea Nitrogen 5 mg/dL (6-20); Calcium 8.2 mg/dL (8.5-10.5); Carbon Dioxide 26 mmol/L (22-29); Chloride 96 mmol/L (98-107); Globulin 3.2 g/dL (1.3-4.6); Glomerular Filtration Rate 98.3 mL/min (90-130); Glucose 95 mg/dL (65-115); Osmolality Calculated 273 mOsm/kg (285-295); Potassium 3.5 mmol/L (3.5-5.1); Sodium 133 mmol/L (136-145); Total Bilirubin 0.7 mg/dL (0.15-1.2); Total Protein 7.3 g/dL (6.6-8.7)
[2021-06-19 19:55] LABS: HCG, Serum Qual Negative (Negative)
[2021-06-19] MEDS: cefTRIAXone 1,000 MG in sodium chloride 0.9% (plus) 50 ML 100 MG IV (19:55)
[2021-06-19 20:28] VITALS: BP 115/73; PULSE 90; RESP 18; TEMP 36.8; O2SAT 98
--- NOTE | 2021-06-26 11:37 | DCPLANNER ---
manager transit had message to schedule follow up appointment for patient with ENT. manager transit emailed patients information to Faith King and Swathi at [facility] General Surgery / ENT clinic. Patients information will be printed and reviewed. Clinic will call patient with appointment information.
--- NOTE | 2021-07-02 11:52 | DCPLANNER ---
Patient has a follow up appointment scheduled for Wednesday, July 11, 2021 at 9:[address] Schafer at [facility] ENT. Clinic will call patient with appointment information.
--- NOTE | 2021-08-28 14:07 | DCPLANNER ---
Patient had a follow up appointment scheduled for 07.11.21 with ENT - patient did attend appointment.
== END 2021-06-19 20:25 | disposition home or self-care (01) ==
PROVIDERS: Emergency Provider Physician Assistant; PCP Family Medicine
DX: J03.90 Acute tonsillitis, unspecified (principal); J02.9 Acute pharyngitis, unspecified; F17.210 Nicotine dependence, cigarettes, uncomplicated
CPT/HCPCS: 70491; 80053; 84703; 85025; 87040; 96365; 96375; 99284; J0696; J2270; J2930; J7030; Q9967